=== PATIENT | female | born 1995 | race Two or more races ===

== ENCOUNTER 2024-10-30 09:54 | Inpatient (IN) | payer MEDICAID, SELFPAY ==
[2024-10-30] VITALS (175 sets, daily range): BP systolic 109–153; BP diastolic 60–92; PULSE 62–171; RESP 16–18; TEMP 36.7–36.8; O2SAT 87–100; BMI 33.5
[2024-10-30 10:47] LABS: ROM Kit Lot # 57805053
[2024-10-30 10:48] LABS: ROM Swab Mixed By: DAVIS2; Swb Mxed in Solvent 1 min? Yes
[2024-10-30 11:09] LABS: Rupture of Fetal Membranes Positive (Negative)
[2024-10-30 12:23] LABS: Basophils % (Auto) 0 % (0-2.5); Eosinophils % (Auto) 0 % (0-10); Hematocrit 37.9 % (36.0-46.0); Hemoglobin 13.3 g/dL (12.0-16.0); Immature Granulocytes % (Auto) 1 % (0-0); Immature Granulocytes Auto 0.06 Thou/mm3 (0.00-0.00); Lymphocytes # (Auto) 1.4 Thou/mm3 (1.0-4.8); Lymphocytes % (Auto) 13 % (10-50); Mean Corpuscular HGB Conc 35.1 g/dl (31.0-37.0); Mean Corpuscular Hemoglobin 29.4 pg (25.0-35.0); Mean Corpuscular Volume 84 fL (80-100); Monocytes # (Auto) 0.6 Thou/mm3 (0.0-0.8); Monocytes % (Auto) 5 % (0-12); Neutrophils # (Auto) 8.7 Thou/mm3 (1.8-7.7); Neutrophils % (Auto) 81 % (37-80); Nucleated Red Blood Cell % 0 /100 WBC (0); Platelet Count 185 Thou/mm3 (140-440); RDW Standard Deviation 41.1 fL (36.4-46.3); Red Blood Count 4.53 Miln/mm3 (4.00-5.20); White Blood Count 10.8 Thou/mm3 (3.6-11.0)
[2024-10-30] MEDS: RINGERS LACTATED 1000 ML 1,000 ML 125 ML IV ×5 (12:24→23:09)
[2024-10-30 12:59] LABS: Syphilis Nonreactive (Nonreactive)
--- NOTE | 2024-10-30 13:00 | ESHP_ITS ---
Documentation for date of: 10/30/24 OB Labor/Induct. HPI History of Present Illness Chief complaint: 29 y/o 39w 5d presents to L&D in early labor with SROM : 3 Para: 1 Term pregnancies: 1 pregnancies: 0 Living children: 1 History of Abortions: Spontaneous and Elective: 0 History of Vaginal deliveries: 1 History of sections: No History of : No SVETLANA: 11/01/24 Gestational Age (weeks): 39 Gestational Age (days): 5 History of present illness: 29 y/o 39w 5d presents to L&D in early labor with SROM- clear fluids, amnisure +. GBS is neg. Cervix is 4/80/-1 vertex. Pt's has been complicated by GDM, diet control, well control BS. EFW 3600g. pt has a hx of nvdx1 no complications. History of Present Dating criteria: LMP confirmed by 1st trimester US Adequate Care: Yes Ultrasounds: normal 1st trimester US and normal mid trimester US Obstetrical complications: gestational diabetes (Diet) Labs Maternal Blood Type: B Pos Labs: Positive: Rubella Titre, Negative: RPR, Hepatitis B, HIV, Chlamydia, Gonorrhea and Group Beta Strep and Unknown: Herpes Type 1, Herpes Type 2 and Covid-19 Review of Systems Review of Systems Systems Reviewed: All systems reviewed, normal except as documented Past Medical History Surgical History SURGICAL: Negative Section Meds Home Medications and Allergies Home Medications ?Medication ?Instructions ?Recorded ?Confirmed ?Type vits no.126-ferrous fum 1 tab PO QDAY 02/21/22 10/30/24 History 28 mg iron-folic acid 800 mcg tablet (Classic ) Allergies Allergy/AdvReac Type Severity Reaction Status Date / Time No Known Allergies Allergy Verified 10/30/24 12:04 OB Exam Physical Exam Vital signs: Temp Pulse Resp BP Pulse Ox 98.1 F 73 18 117/60 98 10/30/24 15:30 10/30/24 18:34 10/30/24 15:30 10/30/24 18:34 10/30/24 18:42 Constitutional Constitutional: no acute distress Routine HEENT Exam Head: Present normocephalic and atraumatic Eye: Present EOMI, PERRL and normal accommodation ENT: Present mucous membranes moist Routine Neck Exam Neck: Present supple, full ROM and trachea midline Routine Cardiovascular Exam Cardiovascular: Present RRR Routine Abdominal Exam Abdominal: Present soft Comments: Gravid Uterus EFW 3600g Routine Exam External: Present normal urethra appearance; Absent lesions Detailed Labor and Delivery Exam Dilation (cm): 4 Effacement (%): 80 Cervix position: posterior station: -1 Consistency: soft Presentation: Vertex Membranes: ruptured Amniotic fluid: clear Baseline heart rate: 130 monitor accelerations: 15x15 monitor decelerations: None computer terminal operator variability: Moderate (11-25) Contraction frequency (min): 5 minutes Routine Extremities Exam Extremities: Present full ROM Routine Back/Spine/Pelvis Exam Back/Spine: Present full ROM Routine Skin Exam Skin: Present intact, dry and warm Routine Neurological Exam Neurological: Present alert, oriented X3 and CN II-XII intact Routine Psychiatric Exam Psychiatric: Present normal affect and normal thought process OB Results Labs 10/30/24 11:45 Labs: Short CBC 10/30/24 Range/Units 11:45 WBC 10.8 (3.6-11.0) Thou/mm3 Hgb 13.3 (12.0-16.0) g/dL Hct 37.9 (36.0-46.0) % Plt Count 185 (140-440) Thou/mm3 OB Assessment & Plan Assessment and Plan (1) Normal labor: Status: Acute (2) with 39 completed weeks gestation: Status: Acute (3) Diet controlled gestational diabetes mellitus (GDM): Status: Acute Additional Plan Induction method: none Plan: augmentation, anticipate NVD and consult prn Additional Plan Comment: Routine admit orders Consult anesthesia for an epidural Continuous EFM (3) Diet controlled gestational diabetes mellitus (GDM) Qualifiers: Trimester: third trimester Qualified Code(s): O24.410 - Gestational diabetes mellitus in , diet controlled
[2024-10-30] MEDS: Ampicillin Inj 2,000 MG in SODIUM CHLORIDE 0.9% (P) 100 ML 200 MG IV (13:08)
[2024-10-30] MEDS: fentaNYL CIT INJ 50 mCg/ML AMP 2ML 100 MCG IV (13:08)
[2024-10-30] MEDS: Ampicillin Inj 1,000 MG in SODIUM CHLORIDE 0.9% (P) 50 ML 50 MG IV ×2 (15:57→21:18)
--- NOTE | 2024-10-30 19:02 | PD.LDPN ---
Documentation for date of: 10/30/24 OB Labor Progress Note Pain Control Pain control: epidural Pelvic Exam Dilation (cm): 5 Effacement (%): 90 station: 0 Amniotic membrane status: Ruptured Contractions Monitor mode: External Contraction frequency: 2-3 Contraction duration: 40-60 Contraction intensity: Moderate Status status: Category l Assessment and Plan Assessment: other (Latent labor) Plan OB labor note: begin Pitocin augmentation (if contractions space out) Comments: Anticipate
[2024-10-30] MEDS: ACETAMINOPHEN 325 MG TABLET 650 MG PO (21:21)
[2024-10-30] MEDS: TERBUTALINE SULF INJ 1 MG/ML VIAL 0.25 MG SC (22:10)
--- NOTE | 2024-10-30 22:54 | PD.LDPN ---
Documentation for date of: 10/30/24 OB Labor Progress Note Pain Control Pain control: epidural Pelvic Exam Dilation (cm): 10 Effacement (%): 100 station: 0 Amniotic membrane status: Ruptured Contractions Monitor mode: External Contraction frequency: 2-3 Contraction duration: 40-60 Contraction phase: Contraction Contraction intensity: Moderate Status status: Category l Assessment and Plan Assessment: other (2nd stage) Plan OB labor note: continuous present management Comments: Pt to labor down and upon feeling pressure will begin pushing Anticipate Dr. Kenny updated
[2024-10-30] MEDS: MINERAL OIL 30 ML UDC TOP (23:34)
[2024-10-31] VITALS (15 sets, daily range): BP systolic 118–144; BP diastolic 71–110; PULSE 75–129; RESP 16–20; TEMP 36.6–37.1; O2SAT 96–98
[2024-10-31] MEDS: OXYTOCIN in NS 20 units 20 UNIT/1,000 ML BAG 125 UNIT IV (00:06)
--- NOTE | 2024-10-31 00:25 | PD.LDDELS ---
Data ([facility]) Data Hx Section: No Maternal Blood Type: B Pos Rubella Titre: Positive RPR: Non-reactive Labs: Negative: RPR, Hepatitis B, HIV, Chlamydia, Gonorrhea and Group Beta Strep and Unknown: Herpes Type 1 and Herpes Type 2 : 2 Para: 1 Term: 1 : 0 Livin : 0 Delivery Data ([facility]) Labor Data Stimulated/Augmented: No Induction: No ROM Date: 10/28/24 ROM Time: 22:00 Rupture Type: SROM Amniotic Fluid: Clear Delivery Data EDC: 11/01/24 EDC calculated by:: LMP/early US confirmation Labor Onset Stage 1 Date: 10/30/24 Labor Onset Stage 1 Time: 19:00 Labor Onset Stage 2 Date: 10/31/24 Labor Onset Stage 2 Time: 22:37 Delivery Date: 10/31/24 Delivery Time: 23:54 Gestational age (weeks): 39 Gestational age (days): 5 Placenta Delivery Date: 10/31/24 Placenta Delivery Time: 00:14 Delivered by: Gianna Mcguire Delivery nurse: Jesica Castillo Payroll Bookkeeper at delivery: No Support person(s) at delivery: FOB Other staff at delivery: Nurse Other staff at delivery: Ludivina Cardona Delivery Method Delivery: Vaginal Delivery Type: Spontaneous Presentation: Vertex Position: OA Anesthesia Type Primary Anesthesia: Epidural Delivery Room Medications Other Intrapartum Medications: No Post Delivery Medications N/A: No Placenta Placenta Delivery: Spontaneous Placenta Cultures Obtained: No Placenta Sent for Examination: No Cord Sample: Cord Blood Obtained Episiotomy Episiotomy: None Lacerations #1: Perineal: 2nd degree Perineal repair Sutures used for repair: 3.0 Vicryl (CT) EBL Estimated blood loss (ml): 300 Umbilical Cord Umbilical Vessels: 3 Nuchal Cord: Not Applicable Body Cord: Not Applicable Additional Procedures Patient was complete and after pushing for 30 minutes had an of a viable female infant. anterior shoulder delivered with gentle downward traction subsequent delivery the posterior shoulder and the body without complications. placed on mother's abdomen. Vigorous cry upon delivery. Cord was clamped. Cut by FOB. Cord blood obtained. Three-vessel cord noted. Placenta expelled spontaneously and intact. Patient sustained a second-degree perineal laceration.. Using a 3-[address] suture. Excellent hemostasis achieved after vigorous fundal massage and removal of clots from the posterior fornix. EBL 300. Sponge and needle count correct. Mother and baby stable, skin to skin and bonding in LDR. Data ([facility]) [place] Data Infant Gender: Female Infant Weight Grams: 3820 1 Minute Total: 8 5 Minute Total: 9
[2024-10-31] MEDS: BENZO/LANO/ALOE (Dermoplast) 60 GM CAN 1 SPRAY TOP (00:44)
[2024-10-31] MEDS: TRANEXAMIC ACID 1,000 MG IVPB 1,000 MG/100 ML BAG 200 MG IV (00:45)
[2024-10-31 05:59] LABS: Basophils % (Auto) 0 % (0-2.5); Eosinophils % (Auto) 0 % (0-10); Hematocrit 33.6 % (36.0-46.0); Hemoglobin 11.8 g/dL (12.0-16.0); Immature Granulocytes % (Auto) 1 % (0-0); Immature Granulocytes Auto 0.08 Thou/mm3 (0.00-0.00); Lymphocytes # (Auto) 1.5 Thou/mm3 (1.0-4.8); Lymphocytes % (Auto) 10 % (10-50); Mean Corpuscular HGB Conc 35.1 g/dl (31.0-37.0); Mean Corpuscular Hemoglobin 29.7 pg (25.0-35.0); Mean Corpuscular Volume 85 fL (80-100); Monocytes # (Auto) 0.9 Thou/mm3 (0.0-0.8); Monocytes % (Auto) 6 % (0-12); Neutrophils # (Auto) 11.9 Thou/mm3 (1.8-7.7); Neutrophils % (Auto) 82 % (37-80); Nucleated Red Blood Cell % 0 /100 WBC (0); Platelet Count 176 Thou/mm3 (140-440); RDW Standard Deviation 41.1 fL (36.4-46.3); Red Blood Count 3.97 Miln/mm3 (4.00-5.20); White Blood Count 14.5 Thou/mm3 (3.6-11.0)
--- NOTE | 2024-10-31 07:11 | ESPR_ITS ---
Subjective Subjective Interval history: day 1. Patient is stable and afebrile doing well. Only complaining about some cramping okay to take pain medication. Reports minimal lochia. Breast-feeding and bonding well Exam Vital Signs Temp Pulse Resp BP Pulse Ox O2 Del Method 98.7 F 76 18 126/77 96 Room Air 10/31/24 04:00 10/31/24 04:00 10/31/24 04:00 10/31/24 04:00 10/31/24 04:00 10/31/24 04:00 Constitutional Constitutional: no acute distress Routine HEENT Exam Head: Present normocephalic and atraumatic Eye: Present EOMI, PERRL and normal accommodation ENT: Present mucous membranes moist Routine Neck Exam Neck: Present supple, full ROM and trachea midline Routine Respiratory Exam Respiratory: Present chest non-tender, lungs clear, normal breath sounds and no resp distress Routine Cardiovascular Exam Cardiovascular: Present RRR Routine Abdominal Exam Abdominal: Present soft and normoactive bowel sounds Comments: Uterus nontender Fundus firm Routine Exam Patient deferred: external exam Routine Extremities Exam Extremities: Present full ROM Routine Back/Spine/Pelvis Exam Back/Spine: Present full ROM Routine Skin Exam Skin: Present intact, dry and warm Routine Neurological Exam Neurological: Present alert, oriented X3 and CN II-XII intact Routine Psychiatric Exam Psychiatric: Present normal affect and normal thought process Objective Labs 10/31/24 05:40 Labs: Laboratory Results - last 24 hr 10/30/24 10/30/24 10/31/24 10:31 11:45 05:40 WBC 10.8 14.5 H RBC 4.53 3.97 L Hgb 13.3 11.8 L Hct 37.9 33.6 L MCV 84 85 MCH 29.4 29.7 MCHC 35.1 35.1 RDW Std Deviation 41.1 41.1 Plt Count 185 176 Neut % (Auto) 81 H 82 H Lymph % (Auto) 13 10 [place] % (Auto) 5 6 Eos % (Auto) 0 0 Baso % (Auto) 0 0 Neut # (Auto) 8.7 H 11.9 H Lymph # (Auto) 1.4 1.5 [place] # (Auto) 0.6 0.9 H Eos # (Auto) 0.0 0.0 Baso # (Auto) 0.0 0.0 Immature Gran # (Auto) 0.06 H 0.08 H Absolute Nucleated RBC 0.00 0.00 Immature Gran % 1 H 1 H Nucleated RBC % 0 0 Membrane Rupture Positive A Syphilis Serology Nonreactive Blood Type B Positive Antibody Screen NEGATIVE Blood Bank Wristband ID Yes Assessment & Plan Problem List (1) Normal spontaneous vaginal delivery: Status: Acute (2) Encounter for care of lactating mother: Status: Acute (3) Diet controlled gestational diabetes mellitus (GDM): Status: Acute (4) with 39 completed weeks gestation: Status: Acute (5) Normal labor: Status: Acute Plan Comment Plan Comment: Patient is doing well. Continue routine care. Encourage patient to ambulate more. Anticipate discharge home tomorrow Time Spent With Patient Time: Total time spent is greater than 50% in coordination of care (as documented) at patient's floor/unit and/or counseling patient: Time with patient: less than 15 minutes
[2024-10-31] MEDS: DOCUSATE SOD 100 MG CAPSULE PO (07:54)
[2024-10-31] MEDS: HYDROcodone/APAP 5/325 TABLET 1 TAB PO (07:55)
[2024-10-31] MEDS: IBUPROFEN TAB 400 MG TABLET 800 MG PO (15:00)
[2024-11-01] VITALS: BP 142/92; PULSE 66; RESP 20; TEMP 36.7; O2SAT 97
[2024-11-01] MEDS: HYDROcodone/APAP 5/325 TABLET 1 TAB PO (01:09)
[2024-11-01] MEDS: IBUPROFEN TAB 400 MG TABLET 800 MG PO ×2 (02:14→09:37)
[2024-11-01 03:43] VITALS: BP 134/82; RESP 18
[2024-11-01] MEDS: DOCUSATE SOD 100 MG CAPSULE PO (07:55)
[2024-11-01 08:00] VITALS: BP 123/77; PULSE 88; RESP 16; TEMP 37.2; O2SAT 98
--- NOTE | 2024-11-01 08:50 | ESDS_ITS ---
DS: Providers Provider Date of admission: 10/30/24 11:52 Primary care physician: Physician No Primary/Family Admitting Provider: Dustin Kenny MD Attending Provider on Admission: Gianna Mcguire CNM Attending Provider on DC: Gianna Mcguire CNM Discharging Provider: Gianna Mcguire CNM Anticipated date of discharge: 11/01/24 DS: Diagnosis Discharge Diagnosis (1) Normal spontaneous vaginal delivery: Status: Acute (2) Encounter for care of lactating mother: Status: Acute (3) Diet controlled gestational diabetes mellitus (GDM): Status: Acute (4) with 39 completed weeks gestation: Status: Acute (5) Normal labor: Status: Acute Problem List Completed Was Problem List Reviewed/Reconciled?: Yes Summary/Hosp Course Brief History: 29 y/o 39w 5d presents to L&D in early labor with SROM- clear fluids, amnisure +. GBS is neg. Cervix is 4/80/-1 vertex. Pt's has been complicated by GDM, diet control, well control BS. EFW 3600g. pt has a hx of nvdx1 no complications. 10/30/2024: Patient was complete and after pushing for 30 minutes had an of a viable female infant. anterior shoulder delivered with gentle downward traction subsequent delivery the posterior shoulder and the body without complications. Infant placed on mother's abdomen. Vigorous cry upon delivery. Cord was clamped. Cut by FOB. Cord blood obtained. Three-vessel cord noted. Placenta expelled spontaneously and intact. Patient sustained a second-degree perineal laceration.. Using a 3-[address] suture. Excellent hemostasis achieved after vigorous fundal massage and removal of clots from the posterior fornix. EBL 300. Sponge and needle count correct. Mother and baby stable, skin to skin and bonding in LDR. 10/31/2024: day 1. Patient is stable and afebrile doing well. Only complaining about some cramping okay to take pain medication. Reports minimal lochia. Breast-feeding infant and bonding well. Uterus nontender fundus firm minimal lochia. Continue routine care. Will plan to discharge patient home tomorrow. Encourage patient to ambulate more today. 11/01/2024: day 2. Patient is stable and afebrile doing well. Only complaining about some cramping okay to take pain medication. Reports minimal lochia. Breast-feeding and bonding well. Uterus nontender fundus firm minimal lochia. Discharge instructions given patient to follow-up with Gianna Mcguire CNM in 3 weeks Peripartum Data Delivery Method: Normal Vaginal Delivery Episiotomy Description: None Laceration Description: yes and see Delivery Summary complications: none 1: Gender: Female Disposition of : home Status at Discharge Cognitive/behavioral status at discharge: Alert and oriented x 3 Functional status at discharge: independent ambulation Overall status at discharge: patient is progressing back to baseline Time Spent with Patient Time attestation: Total time spent providing and/or coordinating discharge services: Time spent: Greater than 30 minutes Exam Vital Signs Temp Pulse Resp BP Pulse Ox 98.2 F 113 H 18 140/86 H 95 10/30/24 19:00 10/31/24 00:06 10/30/24 19:00 10/31/24 00:06 10/30/24 23:52 Constitutional Constitutional: no acute distress Routine HEENT Exam Head: Present normocephalic and atraumatic Eye: Present EOMI, PERRL and normal accommodation ENT: Present mucous membranes moist Routine Neck Exam Neck: Present supple, full ROM and trachea midline Routine Respiratory Exam Respiratory: Present chest non-tender, lungs clear, normal breath sounds and no resp distress Routine Cardiovascular Exam Cardiovascular: Present RRR Routine Abdominal Exam Abdominal: Present soft and normoactive bowel sounds; Absent tenderness or distended Routine Exam Patient deferred: external exam Routine Extremities Exam Extremities: Present full ROM Routine Back/Spine/Pelvis Exam Back/Spine: Present full ROM Routine Skin Exam Skin: Present intact, dry and warm Routine Neurological Exam Neurological: Present alert, oriented X3 and CN II-XII intact Routine Psychiatric Exam Psychiatric: Present normal affect and normal thought process Discharge Plan Plan Patient Disposition: HOME (Self Care) Patient condition on transfer: Stable Prescriptions/Referrals Prescriptions/Med Rec: New ibuprofen 800 mg tablet 800 mg PO Q6H MDD 4 PRN (Reason: pain) Qty: 120 0RF docusate sodium [Colace] 100 mg capsule 100 mg PO BID Qty: 60 0RF lanolin 50 % ointment 1 applic topical TID PRN (Reason: skin irritation) Qty: 15 0RF Continued Classic 28 mg iron- 800 mcg tablet 1 tab PO QDAY Patient Comments: TAKE 1 TABLET BY MOUTH EVERY DAY Referrals: No Primary/Family,Physician [Primary Care Provider] - Patient/Caregiver Discharge Instructions Meds to Beds: No Discharge Activity: activity as tolerated Other Discharge Activity Instructions:: Follow-up with Gianna Mcguire CNM in 3 weeks Education Materials: After a Vaginal , After Delivery [place] Concerns, : Caring for Yourself Print Language: Greenlandic Stand Alone Forms: Misti Award Info., Patient Portal Info Letter Discharge Order Discharge Orders: Discharge (Routine); Ordered 11/01/24 Ordered By: Gianna Mcguire Planned Discharge Date 11/01/24 (3) Diet controlled gestational diabetes mellitus (GDM) Qualifiers: Trimester: third trimester Qualified Code(s): O24.410 - Gestational diabetes mellitus in , diet controlled
== END 2024-11-01 13:00 | disposition home or self-care (01) | DRG 560 ==
LOC: S4SX 10-31 01:07 → S4NX 10-31 02:56
PROVIDERS: Admitting Provider Obstetrics & Gynecology; Visit Provider Nurse Practitioner Women's Health
DX: O42.12 Full-term premature rupture of membranes, onset of labor more than 24 hours following rupture (principal); O70.1 Second degree perineal laceration during delivery; Z37.0 Single live birth; Z3A.39 39 weeks gestation of pregnancy; O24.420 Gestational diabetes mellitus in childbirth, diet controlled
CPT/HCPCS: 36415; 59409; 84112; 85025; 86780; 86850; 86900; 86901; J0290; J2590; J2795; J3010; J3105; J3490; J7050; J7120; A9270